=== PATIENT | male | born 1985 ===

== ENCOUNTER 2017-06-10 16:44 | Emergency (ER) | payer OTHER ==
[~2017-06-10] VITALS: Ht 175.3 cm; Wt 73.9 kg
[2017-06-10 17:59] LABS: APPEARANCE,URINE CLOUDY; BILIRUBIN, URINE NEGATIVE (NEGATIVE); GLUCOSE, URINE (UA) NEGATIVE (NEGATIVE); KETONES,URINE NEGATIVE (NEGATIVE); LEUKOCYTE ESTERASE ,URINE 3+ (NEGATIVE); NITRITE,URINE NEGATIVE (NEGATIVE); PH,URINE 8 (4.5-8.0); PROTEIN,URINE 2+ (NEGATIVE); UROBILINOGEN,URINE 1 MG/DL (0.0-1.0)
[2017-06-10] MEDS ORDERED: Lidocaine 1% MPF 10mg/ml 5ml INJ ONE (18:00)
[2017-06-10 18:02] LABS: COLOR,URINE YELLOW
--- NOTE | 2017-06-10 18:18 | Emergency Room Report ---
History of Present Illness General Chief Complaint: Male Urogenital Problems Source: Patient Present Illness HPI 32-year-old male presents to the emergency department complaining of dysuria, and 8/10 in severity sensitive/burning sensation with intermittent itching to the exterior glans penis 3 days. Patient reports he also has intermittent discomfort at the base of his penis just above the testicles. Patient denies testicular swelling, swollen tender lymph nodes, joint pain, rashes or external genital lesions. Patient does report recent unprotected intercourse and states that his symptoms occurred the very next day. Patient denies penile discharge. Patient is requesting that he be treated for STDs. He denies abdominal pain or tenderness, constipation, diarrhea nausea, vomiting, fevers, or chills Denies CP, Palpitations, LOC, AMS, dizziness, Changes in Vision, Sensation, paresthesias, or a sudden severe headache. Allergies: Coded Allergies: No Known Allergies (Unverified , 06/10/17) Patient History Past Medical History: see triage record Past Surgical History: none Pertinent Family History: none Reviewed Nursing Documentation: PMH: Agreed; PSxH: Agreed Nursing Documentation-PMH Past Medical History: No Stated History Review of Systems All Other Systems: negative except mentioned in HPI Physical Exam Vital Signs Date Time Temp Pulse Resp B/P (MAP) Pulse Ox O2 Delivery O2 Flow Rate FiO2 06/10/17 17:08 98.2 64 17 145/95 95 Room Air 98.2 Sp02 EP Interpretation: reviewed, normal General Appearance: no apparent distress, alert, GCS 15, non-toxic Head: normocephalic, atraumatic ENT: hearing grossly normal, normal voice Neck: full range of motion Respiratory: lungs clear, normal breath sounds, speaking full sentences Cardiovascular #1: regular rate, rhythm Gastrointestinal: non tender, soft Genitourinary: normal inspection, no CVA tenderness, scrotum normal, other - no external lesions, some erythema to the dorsal glans, No testicular tenderness , swelling. Cremasteric reflexes intact. No lymphadenopathy. Musculoskeletal: back normal, gait/station normal, normal range of motion, non- tender Neurologic: alert, oriented x3, responsive, motor strength/tone normal, sensory intact, speech normal, grossly normal Psychiatric: judgement/insight normal Skin: normal color, no rash, warm/dry, well hydrated Lymphatic: no adenopathy Medical Decision Making PA Attestation Dr. tirado is my supervising Physician whom patient management has been discussed with. Diagnostic Impression: Primary Impression: UTI (urinary tract infection) Qualified Codes: N30.00 - Acute cystitis without hematuria Additional Impression: Urethritis ER Course 32-year-old male presents to the emergency department complaining of dysuria, and 8/10 in severity sensitive/burning sensation with intermittent itching to the exterior glans penis 3 days. Patient reports he also has intermittent discomfort at the base of his penis just above the testicles. Patient denies testicular swelling, swollen tender lymph nodes, joint pain, rashes or external genital lesions. Patient does report recent unprotected intercourse and states that his symptoms occurred the very next day. Patient denies penile discharge. Patient is requesting that he be treated for STDs. He denies abdominal pain or tenderness, constipation, diarrhea nausea, vomiting, fevers, or chills Denies CP, Palpitations, LOC, AMS, dizziness, Changes in Vision, Sensation, paresthesias, or a sudden severe headache. Ddx considered but are not limited to UTi , Urethritis, LGV, STI, Stone, Cystitis, prostatitis Coronary Care Unit Nurse for PE was: Courtney ALDRICH Vital signs: are WNL, pt. is afebrile H&PE are most consistent with Urethritis, no external lesions, some erythema to the dorsal glans, No testicular tenderness, swelling. Cremasteric reflexes intact. No lymphadenopathy. ORDERS: - UA :Moderate bacteria, elevated white blood cells and presence of red blood cells indicative of infection. ED INTERVENTIONS: -250mg Rocephin IM DISCHARGE: At this time pt. is stable for d/c to home. Will provide printed patient care instructions, and any necessary prescriptions. Care plan and follow up instructions have been discussed with the patient prior to discharge. Labs Test 06/10/17 17:32 Urine Color Yellow Urine Appearance Cloudy Urine pH 8 (4.5-8.0) Urine Specific [place] 1.010 (1.005-1.035) Urine Protein 2+ (NEGATIVE) Urine Glucose (UA) Negative (NEGATIVE) Urine Ketones Negative (NEGATIVE) Urine Occult Blood Negative (NEGATIVE) Urine Nitrite Negative (NEGATIVE) Urine Bilirubin Negative (NEGATIVE) Urine Urobilinogen 1 MG/DL (0.0-1.0) Urine Leukocyte Esterase 3+ (NEGATIVE) Urine RBC 0-2 /HPF (0 - 0) Urine WBC 20-30 /HPF (0 - 0) Urine Squamous Epithelial Cells None /LPF (NONE/OCC) Urine Bacteria Moderate /HPF (NONE) Last Vital Signs Date Time Temp Pulse Resp B/P (MAP) Pulse Ox O2 Delivery O2 Flow Rate FiO2 06/10/17 17:08 98.2 64 17 145/95 95 Room Air 98.2 Scripts Doxycycline Hyclate* (VIBRAMYCIN*) 100 Mg Capsule 100 MG ORAL EVERY 12 HOURS for 7 Days, #14 CAP 0 Refills Prov: Ayesha Coreas.A. 06/10/17 Clotrimazole* (LOTRIMIN*) 15 Gm Cream..g. 1 APPLIC TOPIC TWICE A DAY for 15 Days, GM Prov: Ayesha Coreas 06/10/17 Cephalexin* (KEFLEX*) 500 Mg Capsule 500 MG ORAL EVERY 12 HOURS for 7 Days, #14 CAP 0 Refills Prov: Ayesha Coreas. 06/10/17 Patient Instructions: Urethritis, Adult, Urinary Tract Infection Additional Instructions: Take medications as directed. Follow up with a Primary Care Provider in 3-5 days, even if your symptoms have resolved. --Please review list of primary care clinics, if you do not already have a primary care provider Return sooner to ED if new symptoms occur, or current symptoms become worse. - Please note that this Emergency Department Report was dictated using [employer] maintenance technician technology software, occasionally this can lead to erroneous entry secondary to interpretation by the dictation equipment. Ayesha Coreas Jun 10, 2017 18:18
[2017-06-10] MEDS ORDERED: VIBRAMYCIN100 MG ORAL (18:19)
[2017-06-10] MEDS ORDERED: CEPHALEXIN500 MG ORAL (18:19)
[2017-06-10] MEDS ORDERED: CLOTRIMAZOLE15 GM TOPIC (18:19)
[2017-06-10 18:28] VITALS: BP 140/90
[2017-06-10 18:29] VITALS: BP 140/90
== END 2017-06-10 18:32 | disposition home or self-care (01) ==
LOC: EMR 18:18
DX: N39.0 Urinary tract infection, site not specified (principal); N34.2 Other urethritis
CPT/HCPCS: 81003; 87086; 96372; 99284; J0696